=== PATIENT | female | born 1960 | race Two or more races ===

== ENCOUNTER 2021-01-24 10:17 | Outpatient (CLI) | payer OTHER | END 2021-01-24 10:33 | disposition home or self-care (01) | LOC: SONOGRAMA 10:17 | PROVIDERS: ATTEND Specialist | DX: M25.572 Pain in left ankle and joints of left foot (principal); M06.09 Rheumatoid arthritis without rheumatoid factor, multiple sites; M65.872 Other synovitis and tenosynovitis, left ankle and foot ==

== ENCOUNTER 2023-03-18 10:52 | Outpatient (CLI) | payer OTHER | END 2023-03-18 11:19 | disposition home or self-care (01) | LOC: SONOGRAMA 10:52 | PROVIDERS: ATTEND Specialist | DX: M77.12 Lateral epicondylitis, left elbow (principal) ==

== ENCOUNTER 2024-01-20 05:28 | Emergency (ER) | payer OTHER ==
[~2024-01-20] VITALS: Ht 160 cm; Wt 90.7 kg
[2024-01-20] MEDS ORDERED: SYNTHROID88 MCG PO (05:47)
[2024-01-20] MEDS ORDERED: SIMVASTATIN5 MG PO (05:47)
[2024-01-20] MEDS ORDERED: CLARITIN10 M1 PO (05:48)
[2024-01-20] MEDS ORDERED: DULOXETINE HCL40 MG PO (05:49)
[2024-01-20] MEDS ORDERED: ZETIA10 MG PO (05:49)
[2024-01-20] MEDS ORDERED: AVAPRO150 MG PO (05:49)
[2024-01-20] MEDS ORDERED: OZEMPIC0.25 MG/02 SUBCUTANEO (05:49)
[2024-01-20] MEDS ORDERED: ATACAND HCT 161 EACH PO (05:50)
[2024-01-20] MEDS ORDERED: HORIZANT300 MG PO (05:50)
[2024-01-20] MEDS ORDERED: ACETAMINOPHEN WITH CODEINE 1 UDTAB TABLET PO STA (06:12)
[2024-01-20] MEDS ORDERED: KETOROLAC TROMETHAMINE 60 MG VIAL IM STA (06:12)
[2024-01-20] MEDS ORDERED: KETOROLAC TROMETHAMINE 60 MG VIAL IM ONE (06:16)
== END 2024-01-20 06:29 | disposition home or self-care (01) ==
LOC: ER 05:29
DX: S93.491A Sprain of other ligament of right ankle, initial encounter (principal); W19.XXXA Unspecified fall, initial encounter; Y93.89 Activity, other specified; Y92.098 Other place in other non-institutional residence as the place of occurrence of the external cause; Y99.8 Other external cause status; Z88.8 Allergy status to other drugs, medicaments and biological substances; S92.351A Displaced fracture of fifth metatarsal bone, right foot, initial encounter for closed fracture
CPT/HCPCS: 73600; 96372; 99283; J1885